=== PATIENT | male | born 1945 | race Caucasian/White ===

== ENCOUNTER 2020-12-27 23:12 | Inpatient (IN) | payer MEDICARE, BC ==
[~2020-12-27] VITALS: Ht 180.3 cm; Wt 79.4 kg
--- NOTE | 2020-12-27 23:12 | NUR ---
BIBRA AND [employer] FROM HOME. PER RA, BEING PLACED ON 5150 FOR DTO, PT APPEARS CONFUSED, TO BED 13, GOWNED, PLACED ON MONITOR, SITTER AT BS FOR SAFETY. VSS. NOT IN ANY DISTRESS, PENDING ER PROVIDER EVAL
[2020-12-28 00:04] LABS: BASOPHILS # (AUTO) 0.1 /CMM (0.0-0.2); BASOPHILS % (AUTO) 0.7 % (0.0-2.0); EOSINOPHILS % (AUTO) 0.8 % (0.0-6.0); HEMATOCRIT 41 % (39-51); HEMOGLOBIN 13.7 g/dL (13.5-17.5); LYMPHOCYTES # (AUTO) 1.4 /CMM (0.8-4.8); MEAN CORPUSCULAR HGB CONC 33 g/dl (31.0-36.0); MEAN CORPUSCULAR VOLUME 94 fL (80-96); MONOCYTES # (AUTO) 0.4 /CMM (0.1-1.30); MONOCYTES % (AUTO) 5.5 % (2.0-12.0); NEUTROPHILS # (AUTO) 6.1 /CMM (1.8-8.9); PLATELET COUNT (AUTO) 306 /CMM (150-450); RED BLOOD CELL COUNT(AUTO) 4.36 MIL/uL (4.5-6.0); WHITE BLOOD COUNT (AUTO) 8.1 K/uL (4.3-11.0)
[2020-12-28 00:13] LABS: CALCIUM, SERUM 9.2 mg/dL (8.5-10.1); CARBON DIOXIDE 28 mmol/L (21-32); CHLORIDE 102 mmol/L (98-107); CREATININE 0.9 mg/dL (0.6-1.3); GLUCOSE 103 mg/dL (74-106); POTASSIUM 3.8 mmol/L (3.5-5.1); SODIUM SERUM 136 mmol/L (136-145); UREA NITROGEN, BLOOD 15 mg/dL (7-18)
--- NOTE | 2020-12-28 00:20 | NUR ---
URINE COLLECTED AND SENT TO LAB
[2020-12-28 00:21] LABS: ALANINE AMINOTRANSFERASE 15 U/L (12-78); ALBUMIN 3.5 g/dL (3.4-5.0); ALCOHOL, BLOOD < 3 mg/dL (0-0); ALKALINE PHOSPHATASE 76 U/L (46-116); ASPARTATE AMINOTRANSFERASE 17 U/L (15-37); BILIRUBIN,DIRECT 0.1 mg/dL (0.0-0.2); BILIRUBIN,TOTAL 0.2 mg/dL (0.2-1.0); TOTAL PROTEIN, SERUM 7.2 g/dL (6.4-8.2)
[2020-12-28 00:23] LABS: ACETAMINOPHEN 0 ug/ml (10-30)
[2020-12-28 00:36] LABS: BILIRUBIN,URINE NEGATIVE (NEGATIVE); COLOR,URINE YELLOW (YELLOW); LEUKOCYTE ESTERASE ,URINE NEGATIVE (NEGATIVE); NITRITE, URINE NEGATIVE (NEGATIVE); PH,URINE 5.5 (5.0-8.0); PROTEIN,URINE NEGATIVE (NEGATIVE); UGLUCOSE NEGATIVE (NEGATIVE); UROBILINOGEN,URINE 0.2 EU/dL (0.2)
[2020-12-28] MEDS ORDERED: OLANZAPINE 10 MG VIAL IM ONE ×2 (00:44→01:00)
--- NOTE | 2020-12-28 00:58 | NUR ---
Call from lab. Rapid covid negative.
[2020-12-28 01:02] LABS: BACTERIA,URINE None seen /HPF (None Seen); HYALINE CASTS, URINE Few /LPF (None Seen); MUCUS,URINE Moderate /LPF (None Seen); RBC,URINE 0-2 /HPF (0-2); SQUAMOUS EPITHELIAL CELL,UR Few /HPF (None Seen); WBC,URINE 0-2 /HPF (0-3)
[2020-12-28] MEDS ORDERED: LORAZEPAM INJ 2 MG/ML VIAL ONE (04:50)
[2020-12-28] MEDS ORDERED: LORAZEPAM INJ 2 MG/ML VIAL IM ONE (05:00)
--- NOTE | 2020-12-28 07:23 | NUR ---
REPORT GIVEN TO DANY العراقي FOR HYUN
--- NOTE | 2020-12-28 07:42 | NUR ---
PT CONFUSED TRYING TO GT OUT OF BED DUSTIN WRIST REST FOR PROTECTION
--- NOTE | 2020-12-28 09:30 | NUR ---
CALLED NURSING FENCE MAKING MACHINE OPERATOR FOR [facility] BED.
--- NOTE | 2020-12-28 17:14 | NUR ---
GOING TO 214.A
--- NOTE | 2020-12-28 17:37 | NUR ---
REPORT GIVEN TO DODIE العراقي. TRANSPORTED TO FLOOR IN STABLE CONDITION.
[2020-12-28 17:45] VITALS: BP 154/83
[2020-12-28] MEDS ORDERED: BLOOD SUGAR DIAGNOSTIC 1 EACH STRIP IN ONE (18:00)
[2020-12-28] MEDS ORDERED: MAG HYDROX/AL HYDROX/SIMETH 30 ML UDC PO PRN (18:00)
[2020-12-28] MEDS ORDERED: MAGNESIUM HYDROXIDE 30 ML UDC PO PRN (18:00)
[2020-12-28] MEDS ORDERED: ACETAMINOPHEN 325 MG TABLET PO PRN (18:00)
[2020-12-28] MEDS ORDERED: ZOLPIDEM TARTRATE 5 MG TABLET PO PRN (18:00)
--- NOTE | 2020-12-28 18:00 | NUR ---
pt. arrived from er.made comfortable.vs taken.went through belongings.bed alarm set.contraband and belongings to locker.
[2020-12-28 18:09] VITALS: BP 154/83
--- NOTE | 2020-12-28 18:10 | NUR ---
will endorse pt. to next shift.dr. smith contacted regarding pt's admission.valuables will be sent to safe by next shift.
--- NOTE | 2020-12-28 18:32 | NUR ---
refused blood sugar.
--- NOTE | 2020-12-28 18:40 | NUR ---
refused admit blood sugar.
--- NOTE | 2020-12-28 18:54 | NUR ---
in dining rm.refused most of dinner except dessert.
[2020-12-28 19:56] VITALS: BP 110/62
[2020-12-28] MEDS: LORAZEPAM 0.5 MG TABLET PO PRN (22:07)
[2020-12-29 00:58] VITALS: BP 110/62
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
--- NOTE | 2020-12-29 06:44 | NUR ---
GPS RN CLOSING NOTES: PATIENT AWAKE, A/O X1, PATIENT IS IN DAY ROOM IN HIPOLITO CHAIR. PATIENT HAD ATIVAN 1MG AT 2207 AND AMBIEN 5MG/1TAB PO AT 2311 BUT SLEPT 1HR THIS SHIFT. PATIENT IS RESTLESS, CONFUSED, DISORGANIZED, DIFFICULT TO REDIRECT, REFUSED LAYING ON BED. NO S/S OF DISTRESS. RESPIRATION EVEN AND UNLABORED WITH EQUAL RISE AND FALL OF THE CHEST ON ROOM AIR. ALL PATIENT CARE NEEDS HAVE BEEN MET ANTICIPATED. WILL CONTINUE TO MONITOR FOR SAFETY, MOOD AND BEHAVIOR AND ENDORSE TO AM SHIFT
[2020-12-29 08:00] VITALS: BP 160/62
--- NOTE | 2020-12-29 09:25 | NUR ---
RN-CO: PATIENT WAS SEEN BY DR PETERSON.
[2020-12-29 10:00] LABS: ALBUMIN 3.8 g/dL (3.4-5.0); BILIRUBIN,TOTAL 0.7 mg/dL (0.2-1.0); CALCIUM, SERUM 9.6 mg/dL (8.5-10.1); CREATININE 0.9 mg/dL (0.6-1.3); POTASSIUM 3.8 mmol/L (3.5-5.1); TOTAL PROTEIN, SERUM 7.9 g/dL (6.4-8.2)
[2020-12-29 11:03] LABS: CHOLESTEROL 178 mg/dL (<200); HDL CHOLESTEROL 61 mg/dL (40-60); LDL 103 mg/dL (0-99); TRIGLYCERIDES 96 mg/dL (30-150)
[2020-12-29 16:00] VITALS: BP 165/85
[2020-12-29] MEDS: QUETIAPINE FUMARATE 25 MG TABLET PO SCH ×2 (16:23→22:18)
[2020-12-29] MEDS: LORAZEPAM 0.5 MG TABLET PO PRN (18:12)
[2020-12-29 20:50] VITALS: BP 141/103
--- NOTE | 2020-12-30 07:00 | NUR ---
GPS RN OPENING NOTES RECEIVED PATIENT IN BED, CALM AND RELAXED.PT ABLE TO FOLLOW SIMPLE COMMAND. EASY TO REDIRECT. NO S/S OF DISTRESS.BREATHING UNLABORED. BED IN LOWEST LOCKED POSITION, HOB ELEVATED, SIDE RAILS UPX2, CALL LIGHT AND TABLE WITHIN REACH. WILL CONTINUE TO MONITOR Q 15 MIN FOR SAFETY, MOOD & BEHAVIOR
[2020-12-30 08:00] VITALS: BP 162/90
[2020-12-30] MEDS: QUETIAPINE FUMARATE 25 MG TABLET PO SCH ×3 (09:29→21:34)
--- NOTE | 2020-12-30 11:23 | NUR ---
JEANNE UGARTE ([phone]), PT'S BROTHER CALLED AND WAS UPDATED ON PT'S STATUS. WILL CONTINUE TO MONITOR
--- NOTE | 2020-12-30 15:45 | NUR ---
Point of Contact: SW called the pt.'s , Bronwyn Basilio [phone] to gather collateral information. Bronwyn provided pt.'s HX.: The pt. was diagnosed with Alzheimer's about 5 years ago. Per Bronwyn, the [employer] are assisting her with filing for Conservatorship at this time. Patient's PCP is Dr. Yolanda Whyte [phone] [facility]. Pt.'s Neurologist, Dr. Manav Mckeon [phone] [facility] as well. Business Services Representative will be available as needed.
--- NOTE | 2020-12-30 15:45 | NUR ---
Initial Discharge Plan: Per the pt.'s Bronwyn, the pt. resides at home [[address] [address]] with her. Per Bronwyn, the pt. is unable to care for self and she is unable to care for the pt. and would like placement. Addendum: 12/30/20 at 1551 by JOSEPH CONTEH Brakes Inspector to continue to collaborate with IDT to ensure safe & proper discharge planning.
[2020-12-30 16:00] VITALS: BP 151/77
--- NOTE | 2020-12-30 18:55 | NUR ---
GPS RN CLOSING NOTES PT IN DINNING ROOM WATCHING AT THIS TIME. PT REMAINED STABLE THROUGH OUT SHIFT. ALL CARE, NEEDS, MEDICATIONS AND TREATMENT ADMINISTERED ANTICIPATED PER ORDER. PT KEPT CLEAN AND DRY. WILL ENDORSE TO MIRROR SPECIALIST NURSE TO CONTINUE TO MONITOR Q 15 MIN FOR SAFETY, MOOD & BEHAVIOR
[2020-12-30 21:29] VITALS: BP 169/105
[2020-12-30] MEDS: LORAZEPAM 0.5 MG TABLET PO PRN (21:34)
[2020-12-31 08:00] VITALS: BP 140/77
[2020-12-31] MEDS: QUETIAPINE FUMARATE 25 MG TABLET PO SCH ×2 (09:00→21:58)
--- NOTE | 2020-12-31 10:33 | NUR ---
[facility]: Per pt.'s 's request, YADY called and spoke to Dluce ([phone]) from [employer] [phone] to assist patient's , Bronwyn Basilio [phone] [facility] Per Dulce, she willc all the & follow up.
[2020-12-31 16:00] VITALS: BP 163/88
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
--- NOTE | 2020-12-31 16:18 | NUR ---
Family Contact: SW called the pt.'s , Bronwyn Basilio ([phone]), and left a voicemail stating that the SW would like to speak to her about the initial discharge plan for the pt and receiving authorization to speak with the [employer] [facility] staff.
[2020-12-31 21:12] VITALS: BP 124/62
[2020-12-31] MEDS: LORAZEPAM 0.5 MG TABLET PO PRN (21:58)
[2021-01-01 08:00] VITALS: BP 136/96
--- NOTE | 2021-01-01 10:58 | NUR ---
Probable Cause Hearing: Pts 5250 hold was upheld for grave disability.
[2021-01-01 16:00] VITALS: BP 156/90
[2021-01-01 20:56] VITALS: BP 166/92
[2021-01-01] MEDS: LORAZEPAM 0.5 MG TABLET PO PRN (21:52)
[2021-01-01] MEDS: QUETIAPINE FUMARATE 25 MG TABLET PO SCH (21:52)
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
--- NOTE | 2021-01-02 06:24 | NUR ---
metal wire technician notes pt resting at this time. no more bleeding noted from his mouth. call center operator MD aware . will endorse to am nurse .
[2021-01-02 08:00] VITALS: BP 144/97
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
[2021-01-02 16:00] VITALS: BP 137/92
[2021-01-02] MEDS: LORAZEPAM 0.5 MG TABLET PO PRN (18:21)
[2021-01-02 19:50] VITALS: BP 167/84
[2021-01-02] MEDS: QUETIAPINE FUMARATE 25 MG TABLET PO SCH (21:01)
[2021-01-02 21:30] VITALS: BP 126/99
[2021-01-03] MEDS: LORAZEPAM 0.5 MG TABLET PO PRN ×2 (02:34→15:21)
--- NOTE | 2021-01-03 02:34 | NUR ---
GPS-RN NOTES: ANXIETY PATIENT IS ANXIOUS, RESTLESS AND AGITATED. ADMINISTERED ATIVAN 1MG PO ORDERED. WILL CONTINUE TO MONITOR FOR PATIENT'S SAFETY.
[2021-01-03 08:00] VITALS: BP 110/63
--- NOTE | 2021-01-03 10:30 | NUR ---
APS Installer Apprentice Contact: APS Installer Apprentice Lissette ([phone]) contacted the SW and stated that she wanted to be informed of the pts discharge plan. SW informed her that the pt will not be discharged until after the weekend and stated that the plan is to send the pt to a senior living facility. APS SW stated that she would call and follow up.
--- NOTE | 2021-01-03 10:54 | NUR ---
The told the psychiatrist that pt. had lung cancer 3 years ago and psychiatrist wanted staff to notify the medical doctor. Dr. Cloud made aware and said ok.
[2021-01-03 16:00] VITALS: BP 149/78
--- NOTE | 2021-01-03 17:48 | NUR ---
PER RN, PT UNABLE TO DO TWO VIEW CHEST XRAY. RN WILL FOLLOW UP WITH MD FOR XRAY ORDER.
--- NOTE | 2021-01-03 19:30 | NUR ---
RN NOTES: REFUSED SKIN ASSESSMENT PT. NOTED WITH SELF INFLICTED SKIN DISCOLORATIONS ,PT. REFUSED SKIN ASSEEMENT ENCOURAGED X3, PT. STRONGLY REFUSED ,RISKS AND BENFITS EXPLINED AND PT. BEHAVIOR VERY UNCOOPERATIVE, ANXIOUS, UNPREDICTABLE, CLIMBING OUT THE BED AND GERICHAIR ,NOT STAYING IN THE BED , BANGING UPPER LOWER EXTEIMITIES WITH SIDE RAILS AND HIPOLITO CHAIR ,WILL CONTINUE TO MONITOR.
[2021-01-03 20:21] VITALS: BP 151/86
[2021-01-03] MEDS: QUETIAPINE FUMARATE 25 MG TABLET PO SCH (21:09)
[2021-01-03] MEDS: diphenhydrAMINE HCL 50 MG CAPSULE PO SCH (21:09)
[2021-01-03 22:00] VITALS: BP 138/82
[2021-01-04] MEDS ORDERED: Z GUARD REMEDY 2 OZ OINT TP PRN (02:30)
[2021-01-04] MEDS: LORAZEPAM 0.5 MG TABLET PO PRN ×2 (06:14→15:37)
--- NOTE | 2021-01-04 06:17 | NUR ---
RN NOTES: ANXIETY PT. BEHAVIOR VERY UNCOOPERATIVE, VERY ANXIOUS, UNPREDICTABLE, CLIMBING OUT THE BED AND GERICHAIR ,NOT STAYING IN THE BED , BANGING UPPER LOWER EXTEIMITIES WITH SIDE RAILS AND HIPOLITO CHAIR ,[id number] PO PRN GIVEN,WILL CONTINUE TO MONITOR.
[2021-01-04 08:00] VITALS: BP 138/71
--- NOTE | 2021-01-04 15:37 | NUR ---
given ativan 1 mg. for agitation.
[2021-01-04 16:00] VITALS: BP 151/69
--- NOTE | 2021-01-04 19:30 | NUR ---
GPS RN OPENING NOTES REPORT RECIEVED FROM KEYON العراقي. RECEIVED PATIENT IN [facility] SITTIGN IN HALLWAY, CALM AND RELAXED ORIENTED X1 DISORGANIZED THOUGHT PROCESS. PT COOPERATIVE. PT IN NO APPARENT DISTRESS OR PAIN AT THIS TIME. BREATHING EVEN AND UNLABORED. WILL CONTINUE TO MONITOR Q 15 MIN FOR SAFETY, MOOD & BEHAVIOR
[2021-01-04 20:29] VITALS: BP 152/86
[2021-01-04] MEDS: QUETIAPINE FUMARATE 25 MG TABLET PO SCH (22:19)
[2021-01-04] MEDS: diphenhydrAMINE HCL 50 MG CAPSULE PO SCH (22:19)
[2021-01-05 08:00] VITALS: BP 112/65
[2021-01-05] MEDS: QUETIAPINE FUMARATE 25 MG TABLET PO SCH (08:26)
[2021-01-05] MEDS: LORAZEPAM 0.5 MG TABLET PO PRN ×2 (08:26→16:45)
--- NOTE | 2021-01-05 10:00 | NUR ---
RN NOTE INFORMED DR LOLLY MARQUEZ REGARDING PT IF HE WANTS TO CONSIDER CT SCAN FOR A MORE EXTENSIVE ASSESSMENT OF THE NODULES, HE SAID HE WILL CHECK ON IT.
[2021-01-05 16:00] VITALS: BP 157/80
[2021-01-05 20:00] VITALS: BP 156/88
[2021-01-05] MEDS: diphenhydrAMINE HCL 50 MG CAPSULE PO SCH (21:53)
[2021-01-05] MEDS: QUETIAPINE FUMARATE 100 MG TABLET PO SCH (21:53)
[2021-01-05] MEDS ORDERED: QUETIAPINE FUMARATE 25 MG TABLET PO SCH (22:00)
[2021-01-06 08:00] VITALS: BP 141/74
[2021-01-06] MEDS: QUETIAPINE FUMARATE 25 MG TABLET PO SCH (08:09)
--- NOTE | 2021-01-06 10:16 | NUR ---
SNF Referral: SW faxed a referral to [facility] with attn to David to the fax number: [phone].
[2021-01-06 16:00] VITALS: BP 145/90
[2021-01-06 20:00] VITALS: BP 155/83
[2021-01-06] MEDS: diphenhydrAMINE HCL 50 MG CAPSULE PO SCH (21:04)
[2021-01-06] MEDS: QUETIAPINE FUMARATE 100 MG TABLET PO SCH (21:05)
[2021-01-06] MEDS: LORAZEPAM 0.5 MG TABLET PO PRN (23:02)
--- NOTE | 2021-01-06 23:03 | NUR ---
GPS-RN NOTES: ANXIETY PATIENT IS ANXIOUS AND RESTLESS. ADMINISTERED ATIVAN 1MG PO ORDERED. WILL CONTINUE TO MONITOR FOR PATIENT'S SAFETY.
[2021-01-07 08:00] VITALS: BP 162/69
[2021-01-07] MEDS: QUETIAPINE FUMARATE 25 MG TABLET PO SCH ×2 (08:03→17:12)
--- NOTE | 2021-01-07 09:00 | NUR ---
RN NOTE- PT PARANOID, CONFUSED AND WITHDRAWN. PT POOR EYE CONTACT MINIMAL INTERACTION, MED COMPLIANT W CRUSHED RX. PO INTAKE FAIR.
--- NOTE | 2021-01-07 11:03 | NUR ---
APS Follow-up: YADY received call from APS workerJuli [phone] requesting additional information and current D/C plan. SW addressed Juli's questions and informed he that per Grazyna CONTEH' notes, the current D/C plan is for patient D/C to a SNF. Juli is agreeable. YADY will be available as needed.
--- NOTE | 2021-01-07 13:57 | NUR ---
SNF Contact: Evelyn ([phone]) from [facility] contacted the SW and stated that the pt was accepted to their facility.
--- NOTE | 2021-01-07 15:30 | NUR ---
PT. ENDORSED TO ME AT THIS TIME BY CATIA PURCELL.
[2021-01-07 16:00] VITALS: BP 150/75
[2021-01-07 20:00] VITALS: BP 138/81
[2021-01-07] MEDS: QUETIAPINE FUMARATE 100 MG TABLET PO SCH (22:21)
[2021-01-07] MEDS: diphenhydrAMINE HCL 50 MG CAPSULE PO SCH (22:21)
--- NOTE | 2021-01-08 06:36 | NUR ---
GPS RN CLOSING NOTES: PATIENT IN HALLWAY SITTING IN HIPOLITO CHAIR AWAKE AND ALERT . SLEPT 0HR THIS SHIFT. RESTLESS, CONFUSED, DISORGANIZED. NO S/S OF DISTRESS. RESPIRATION EVEN AND UNLABORED WITH EQUAL RISE AND FALL OF THE CHEST ON ROOM AIR. OFFERED FLUID AND SNACKS TOLERATED. ALL PATIENT CARE NEEDS MET ANTICIPATED. WILL CONTINUE TO MONITOR FOR SAFETY, MOOD AND BEHAVIOR AND ENDORSE TO AM SHIFT.
[2021-01-08 08:00] VITALS: BP 153/100
[2021-01-08] MEDS: QUETIAPINE FUMARATE 25 MG TABLET PO SCH ×2 (09:11→16:51)
--- NOTE | 2021-01-08 09:44 | NUR ---
[facility] Contact: YADY called Rebecca ([phone]) and Cathy ([phone]), social workers from [employer], and left a voicemail stating that there is an update with the pts discharge plan.
[2021-01-08] MEDS: AMLODIPINE BESYLATE 5 MG TABLET PO SCH (10:05)
--- NOTE | 2021-01-08 10:15 | NUR ---
RN NOTE: HYPERTENSION DR. RAMEY NOTIFIED OF ELEVATED BP. STARTED ON AMLODIPINE 5MG DAILY.
[2021-01-08] MEDS: ENSURE ENLIVE 237 ML LIQUID (VANILLA) PO SCH ×2 (13:09→16:50)
--- NOTE | 2021-01-08 14:30 | NUR ---
[employer] [facility] Contact: Rebecca ([phone]) and Cathy ([phone]), social workers from [employer], contacted the SW and inquired about the pts discharge plan. SW stated that the pt was accepted at [facility] and is set to discharge there on Wednesday. SW explained that there would be a continuity of care between the pt and the MD and informed them that it is a facility that is deemed to be an appropriate fit for the pt. Rebecca stated that she wanted to look up the reviews and that she will call the SW back in a few minutes.
--- NOTE | 2021-01-08 15:26 | NUR ---
[facility] Contact: Cathy ([phone]), social sciences department chair from [employer], contacted the SW and stated that the pt can be discharged to [facility]. SW stated that she would inform the right now.
--- NOTE | 2021-01-08 15:28 | NUR ---
Family Contact: SW called the pt.'s , Bronwyn Basilio ([phone]), and informed her of the placement for the pt and informed her that he will be discharged there on Wednesday.
[2021-01-08 16:00] VITALS: BP 158/91
[2021-01-08] MEDS: LORAZEPAM 0.5 MG TABLET PO PRN (19:40)
--- NOTE | 2021-01-08 19:40 | NUR ---
GPS-RN NOTES: ANXIETY PATIENT IS ANXIOUS AND RESTLESS. ADMINISTERED ATIVAN 1MG PO ORDERED. WILL CONTINUE TO MONITOR FOR PATIENT'S SAFETY.
[2021-01-08 19:41] VITALS: BP 162/73
[2021-01-08] MEDS: QUETIAPINE FUMARATE 100 MG TABLET PO SCH (21:15)
[2021-01-08] MEDS: diphenhydrAMINE HCL 50 MG CAPSULE PO SCH (21:15)
[2021-01-09] MEDS: ZOLPIDEM TARTRATE 10 MG TABLET PO PRN ×2 (00:10→23:23)
[2021-01-09 08:00] VITALS: BP 109/69
[2021-01-09] MEDS: AMLODIPINE BESYLATE 5 MG TABLET PO SCH ×2 (09:00→11:32)
[2021-01-09] MEDS: QUETIAPINE FUMARATE 25 MG TABLET PO SCH ×2 (09:44→16:23)
[2021-01-09] MEDS: ENSURE ENLIVE 237 ML LIQUID (VANILLA) PO SCH ×3 (09:44→16:16)
--- NOTE | 2021-01-09 11:17 | NUR ---
Family Contact: Pts sister, Almita ([phone]), called the SW and stated that the SNF that was secured for the pt is too far away and stated that she wanted the SW to refer the pt to [facility]. SW stated that she can assist and refer the pt but also informed her that the pt is going to be discharged tomorrow.
--- NOTE | 2021-01-09 11:20 | NUR ---
Family Contact: SW called the pt.'s , Bronwyn Basilio ([phone]), and inquired about if she wanted a closer SNF placement as well and she stated that she does. Pts stated that she wanted the SW to try and understands that the pts discharge date is tomorrow. SW stated that if another placement cannot be secured then the facility can assist in moving the pt closer. Pts stated that she understands.
--- NOTE | 2021-01-09 11:52 | NUR ---
SNF Contact: YADY faxed a SNF referral to [facility] with attn to admissions to the fax number: [phone].
--- NOTE | 2021-01-09 14:39 | NUR ---
SNF Contact: Pedrito from [facility] contacted the SW and stated that the pt was not accepted to their facility.
--- NOTE | 2021-01-09 14:42 | NUR ---
Family Contact: Pts sisterAlmita ([phone]), Addendum: 01/09/21 at 1443 by YADY BOWERS YADY called the pts sister, Almita ([phone]), and informed her that [facility] was not accepting the pt and the pts sister asked the SW to try [facility].
--- NOTE | 2021-01-09 14:43 | NUR ---
SNF Referral: YADY faxed a referral to [facility] SNF with attn to Bronwyn to the fax number: [phone].
[2021-01-09 16:00] VITALS: BP 135/82
[2021-01-09 19:49] VITALS: BP 137/64
[2021-01-09] MEDS: diphenhydrAMINE HCL 50 MG CAPSULE PO SCH (21:34)
[2021-01-09] MEDS: QUETIAPINE FUMARATE 100 MG TABLET PO SCH (21:34)
--- NOTE | 2021-01-09 23:24 | NUR ---
RN NOTES: INSOMNIA : PT. C/O INSOMNIA AMBIEN 10 MG PO PRN GIVEN, WILL CONTINUE TO MONITOR.
[2021-01-10 08:00] VITALS: BP 105/63
[2021-01-10] MEDS: ENSURE ENLIVE 237 ML LIQUID (VANILLA) PO SCH ×2 (08:19→12:55)
[2021-01-10 08:20] VITALS: BP 105/63
[2021-01-10] MEDS: AMLODIPINE BESYLATE 5 MG TABLET PO SCH (08:20)
[2021-01-10] MEDS: QUETIAPINE FUMARATE 25 MG TABLET PO SCH (08:20)
--- NOTE | 2021-01-10 09:00 | NUR ---
RN NOTE-PT CALM CONFUSED QUIET RESTING IN BED. PO INTAKE GOOD W FULL ASSIST, MED COMPLIANT CRUSHED RX, NO BEHAVIORAL ISSUES, FOR DC TODAY
--- NOTE | 2021-01-10 09:06 | NUR ---
Dr. Torres gave an order to D/C bassem and D/C to [facility] and to follow up with psych and medical doctors. Psychiatrist ordered to continue same meds including prn. Addendum: 01/10/21 at 1004 by TOM RAMIRES RN Pt. is going to [facility] not at [facility]
--- NOTE | 2021-01-10 09:10 | NUR ---
Court Appointed Telecommunication Lines Repairer Contact: Nitesh Pretty ([phone]), court appointed canine deputy, contacted the SW and stated that he is mandated to speak to the pt regarding his conservatorship hearing that is taking place on Wednesday. Telecommunication Lines Repairer provided the SW with a zoom link and the pt was present for the meeting.
--- NOTE | 2021-01-10 09:33 | NUR ---
SNF Contact: Bronwyn ([phone]) from [facility] contacted the SW and stated that the pt was accepted to their facility.
--- NOTE | 2021-01-10 09:34 | NUR ---
Family Contact: SW called the pts sister, Almita ([phone]), and informed her that the pt was accepted to [facility]. Pts sister expressed gratitude with this placement.
--- NOTE | 2021-01-10 09:35 | NUR ---
Family Contact: SW called the pt.'s , Bronwyn Basilio ([phone]), and informed her that the pt is accepted at [facility] and she accepted the placement.
--- NOTE | 2021-01-10 12:20 | NUR ---
Discharge Note: Pt will be discharged to [facility] ([facility] [place] [address] [place] [address]; ([phone]). Pt will be transported via [facility] at 1300. Pts , Bronwyn ([phone]), was made aware. Upon discharge, the pt appears to be in a dysphoric mood and presents with a distressed affect. Pt presents as oriented x3 (time, place, and self). Pt denies both suicidal and homicidal ideation as well as auditory and visual hallucinations. Pt will continue to be under the care of his psychiatrist, Dr. Ashley, [place] [address] [facility] [address] [address]; and dietitian consultant, dietitian consultant, Dr. Smith, [place] [address] [place] [address]; . The choice of vendor form and multidisciplinary exit care form were done, printed, signed, and given to the patient.
--- NOTE | 2021-01-10 13:52 | NUR ---
CUSTOMER ACCOUNT COORDINATOR NOTE- PT DC AT THIS TIME VIA [facility] TO [facility]. PT IS ALERT CONFUSED ORIENTED TO SELF. SKIN W ONE SMALL SKIN TEAR TO LLE. PHOTOS TAKEN FOR CHART. PT MED COMPLIANT DIRECTABLE IN NO DISTRESS. VS STABLE BP-105/63, HR- 68, RR-18, T- 98.0 SATURATION 99% RA. ID WRISTBAND REMOVED, VALUABLES RETURNED, REPORT CALLED TO [facility]. REFUSES VACCINES. ASSISTED AND ESCORTED OFF UNIT
== END 2021-01-10 13:52 | DRG 885 ==
LOC: ER 23:15 → GPS 12-28 17:22
PROVIDERS: ADMIT Psychiatry & Neurology Psychiatry; ATTEND Nurse Practitioner Acute Care
DX: F29 Unspecified psychosis not due to a substance or known physiological condition (principal); F02.81 Dementia in other diseases classified elsewhere, unspecified severity, with behavioral disturbance; F41.9 Anxiety disorder, unspecified; E78.5 Hyperlipidemia, unspecified; I10 Essential (primary) hypertension; G30.9 Alzheimer's disease, unspecified; R53.1 Weakness; R27.8 Other lack of coordination; Z91.81 History of falling; Z73.6 Limitation of activities due to disability; F32.9 Major depressive disorder, single episode, unspecified; R73.03 Prediabetes; Z79.899 Other long term (current) drug therapy
CPT/HCPCS: 36415; 71045-TC; 80048-TC; 80053-TC; 80061-TC; 80076-TC; 81001; 85025-TC; 87081-TC; 92526; 92611-TC; C9803; G0480; J2060; J3490; Q0163

== ENCOUNTER 2021-02-22 02:03 | Inpatient (IN) | payer MEDICARE, BC ==
[~2021-02-22] VITALS: Ht 167.6 cm; Wt 60.3 kg
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
[2021-02-22] MEDS ORDERED: DIPH50CA37 PO (02:16)
[2021-02-22] MEDS ORDERED: LIDOCAINE 2% JEL UROJET 10 ML MM ONE (02:16)
[2021-02-22] MEDS ORDERED: AMLO5TAB4 PO (02:16)
[2021-02-22] MEDS ORDERED: QUET100T PO (02:16)
[2021-02-22] MEDS ORDERED: QUET50TA PO (02:16)
[2021-02-22] MEDS ORDERED: TDAP [DIPH/PERTUSSIS/TET] 0.5 ML VIAL IM ONE (02:23)
--- NOTE | 2021-02-22 02:35 | NUR ---
URINE COLLECTED AND SENT TO LAB
--- NOTE | 2021-02-22 02:35 | NUR ---
COVID SWAB SENT TO LAB
[2021-02-22 02:39] LABS: BASOPHILS % (AUTO) 0.2 % (0.0-2.0); EOSINOPHILS % (AUTO) 1.8 % (0.0-6.0); HEMATOCRIT 38 % (39-51); HEMOGLOBIN 12.5 g/dL (13.5-17.5); LYMPHOCYTES # (AUTO) 2.1 /CMM (0.8-4.8); LYMPHOCYTES % (AUTO) 31.7 % (20.0-44.0); MEAN CORPUSCULAR HGB CONC 33 g/dl (31.0-36.0); MEAN CORPUSCULAR VOLUME 96 fL (80-96); MONOCYTES # (AUTO) 0.5 /CMM (0.1-1.30); MONOCYTES % (AUTO) 6.8 % (2.0-12.0); NEUTROPHILS % (AUTO) 59.5 % (43.0-81.0); PLATELET COUNT (AUTO) 288 /CMM (150-450); RED BLOOD CELL COUNT(AUTO) 3.95 MIL/uL (4.5-6.0); WHITE BLOOD COUNT (AUTO) 6.6 K/uL (4.3-11.0)
[2021-02-22 02:53] LABS: CALCIUM, SERUM 9.1 mg/dL (8.5-10.1); CARBON DIOXIDE 27 mmol/L (21-32); CHLORIDE 106 mmol/L (98-107); CREATININE 1.1 mg/dL (0.6-1.3); GLUCOSE 89 mg/dL (74-106); SODIUM SERUM 137 mmol/L (136-145); UREA NITROGEN, BLOOD 14 mg/dL (7-18)
[2021-02-22 02:57] LABS: BILIRUBIN,URINE NEGATIVE (NEGATIVE); COLOR,URINE YELLOW (YELLOW); LEUKOCYTE ESTERASE ,URINE NEGATIVE (NEGATIVE); NITRITE, URINE NEGATIVE (NEGATIVE); PH,URINE 6.5 (5.0-8.0); PROTEIN,URINE NEGATIVE (NEGATIVE); UGLUCOSE NEGATIVE (NEGATIVE); UROBILINOGEN,URINE 0.2 EU/dL (0.2)
[2021-02-22 02:59] LABS: ACETAMINOPHEN < 2 ug/ml (10-30); ALANINE AMINOTRANSFERASE 19 U/L (12-78); ALBUMIN 3.4 g/dL (3.4-5.0); ALCOHOL, BLOOD < 3 mg/dL (0-0); ALKALINE PHOSPHATASE 78 U/L (46-116); ASPARTATE AMINOTRANSFERASE 12 U/L (15-37); BILIRUBIN,DIRECT 0.1 mg/dL (0.0-0.2); BILIRUBIN,TOTAL 0.2 mg/dL (0.2-1.0); TOTAL PROTEIN, SERUM 6.7 g/dL (6.4-8.2)
[2021-02-22 03:01] LABS: BACTERIA,URINE None seen /HPF (None Seen); RBC,URINE 0-2 /HPF (0-2); SQUAMOUS EPITHELIAL CELL,UR Few /HPF (None Seen); WBC,URINE 0-2 /HPF (0-3)
--- NOTE | 2021-02-22 04:06 | NUR ---
CALL FROM LAB. RAPID COVID NEGATIVE.
--- NOTE | 2021-02-22 05:40 | NUR ---
SANDI- CRISIS TEAM AT BEDSIDE FOR EVAL.
--- NOTE | 2021-02-22 06:54 | NUR ---
217 REPORT AFTER SHIFT CHANGE
--- NOTE | 2021-02-22 07:30 | NUR ---
REPORT GIVEN TO DULCE MARIA ECHEVARRIA FOR HYUN
[2021-02-22 08:30] VITALS: BP 127/72
[2021-02-22] MEDS ORDERED: MAG HYDROX/AL HYDROX/SIMETH 30 ML UDC PO PRN (08:30)
[2021-02-22] MEDS ORDERED: BLOOD SUGAR DIAGNOSTIC 1 EACH STRIP IN ONE (08:30)
[2021-02-22] MEDS ORDERED: MAGNESIUM HYDROXIDE 30 ML UDC PO PRN (08:30)
[2021-02-22] MEDS: AMLODIPINE BESYLATE 5 MG TABLET PO SCH (09:38)
[2021-02-22] MEDS: QUETIAPINE FUMARATE 25 MG TABLET PO SCH ×2 (11:24→16:20)
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
[2021-02-22 16:00] VITALS: BP 119/96
[2021-02-22 20:51] VITALS: BP 119/51
[2021-02-22 20:52] VITALS: BP 119/51
[2021-02-22] MEDS: QUETIAPINE FUMARATE 100 MG TABLET PO SCH (21:06)
[2021-02-22] MEDS: diphenhydrAMINE HCL 50 MG CAPSULE PO SCH (22:02)
[2021-02-22] MEDS: LORAZEPAM 0.5 MG TABLET PO PRN (23:03)
--- NOTE | 2021-02-22 23:05 | NUR ---
RN NOTE: ANXIETY PATIENT IS VERY ANXIOUS, RESTLESS, AGGRESSIVE, AGITATED, TRYING TO STRIKE AT STAFF, BANGING ON HIPOLITO CHAIR TRAY, LOUD, YELLING, PRN ATIVAN 0.5 MG 1 TAB PO ADMINISTERED. WILL CONTINUE TO MONITOR.
[2021-02-23] MEDS: TEMAZEPAM 7.5 MG CAPSULE PO PRN ×3 (01:40→23:44)
--- NOTE | 2021-02-23 01:40 | NUR ---
RN NOTE: INSOMNIA PATIENT IS AWAKE, UNABLE TO SLEEP, EASILY AGITATED & RESTLESS. PRN RESTORIL 7.5 MG 1 CAP PO ADMINISTERED. WILL CONTINUE TO MONITOR.
[2021-02-23 08:00] VITALS: BP 136/70
[2021-02-23] MEDS: AMLODIPINE BESYLATE 5 MG TABLET PO SCH (08:11)
[2021-02-23] MEDS: QUETIAPINE FUMARATE 25 MG TABLET PO SCH ×2 (08:11→16:22)
[2021-02-23 16:00] VITALS: BP 131/74
[2021-02-23] MEDS: LORAZEPAM 0.5 MG TABLET PO PRN ×2 (16:22→23:05)
--- NOTE | 2021-02-23 16:22 | NUR ---
RN-CO: ATIVAN 0.5MG PO GIVEN FOR RESTLESSNESS.
[2021-02-23 18:28] LABS: ALBUMIN 3.4 g/dL (3.4-5.0); BILIRUBIN,TOTAL 0.3 mg/dL (0.2-1.0); CALCIUM, SERUM 8.9 mg/dL (8.5-10.1); CHOLESTEROL 162 mg/dL (<200); CREATININE 0.9 mg/dL (0.6-1.3); HDL CHOLESTEROL 42 mg/dL (40-60); LDL 100 mg/dL (0-99); POTASSIUM 4.2 mmol/L (3.5-5.1); TOTAL PROTEIN, SERUM 7.2 g/dL (6.4-8.2); TRIGLYCERIDES 191 mg/dL (30-150)
[2021-02-23] MEDS: QUETIAPINE FUMARATE 100 MG TABLET PO SCH (21:02)
[2021-02-23] MEDS: diphenhydrAMINE HCL 50 MG CAPSULE PO SCH (21:02)
[2021-02-23 21:42] VITALS: BP 133/80
--- NOTE | 2021-02-23 23:05 | NUR ---
ROSA ELENA RN NOTES PATIENT GIVEN ATIVAN O.5 MG BECAUSE HE WAS VERY AGITATED.
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
--- NOTE | 2021-02-24 06:36 | NUR ---
GPS RN CLOSING NOTES 217 PATIENT IN ROOM SLEEPING, BUT EASY TO AROUSE. NO S/S OF DISTRESS. NO C/O PAIN. ALL SCHED MEDS GIVEN. SAFETY KEPT IN PLACE: BED IN LOWEST, LOCKED POSITION; BED ALARM IN PLACE. ALL NEEDS ATTENDED. WILL ENDORSE CARE TO MORNING SHIFT NURSE.
[2021-02-24 08:00] VITALS: BP 133/70
[2021-02-24] MEDS: AMLODIPINE BESYLATE 5 MG TABLET PO SCH (09:00)
[2021-02-24] MEDS: QUETIAPINE FUMARATE 25 MG TABLET PO SCH ×2 (09:38→17:16)
[2021-02-24] MEDS: LORAZEPAM 0.5 MG TABLET PO PRN ×2 (09:39→20:17)
--- NOTE | 2021-02-24 09:39 | NUR ---
west godinez administered Ativan 0.5 mg po prn for anxiety, paranoia. bp 99/57, p-61, will monitoring.
--- NOTE | 2021-02-24 13:44 | NUR ---
SNF Contact: YADY contacted Bronwyn ([phone]) from [facility] who stated that the pt can return once stable.
--- NOTE | 2021-02-24 13:45 | NUR ---
Family Contact: SW contacted the pts , Bronwyn ([phone]), who stated that she does not want the pt to go back to [facility] and instead wants the pt to go to [facility] due to their facility having more resources. SW stated that she will assist with the discharge.
--- NOTE | 2021-02-24 15:46 | NUR ---
Initial Discharge Plan: Pt currently resides [facility] located at [address] [place] [id number]; ([phone]). Per facility, the pt will be allowed to return once stable. Per pts , Bronwyn ([phone]), she would like to place the pt elsewhere. SW will work with the pt and the MD regarding appropriate discharge planning. SW will form a safe and proper plan.
[2021-02-24 16:00] VITALS: BP 125/78
--- NOTE | 2021-02-24 20:19 | NUR ---
GPS RN NOTES: PATIENT IS ANXIOUS, RESTLESS, PACING, DISORGANIZED. ATIVAN 0.5MG 1TAB GIVEN PO PRN ORDERED AT 2017. WILL CONTINUE TO MONITOR.
[2021-02-24] MEDS: QUETIAPINE FUMARATE 100 MG TABLET PO SCH (21:21)
[2021-02-24] MEDS: diphenhydrAMINE HCL 50 MG CAPSULE PO SCH (21:21)
[2021-02-24] MEDS: ACETAMINOPHEN 325 MG TABLET PO PRN (21:53)
[2021-02-24] MEDS: TEMAZEPAM 7.5 MG CAPSULE PO PRN (22:00)
[2021-02-24] MEDS ORDERED: OLANZAPINE 10 MG VIAL IM ONE (22:30)
--- NOTE | 2021-02-24 22:50 | NUR ---
GPS RN NOTES: PATIENT WAS AGITATED, RESTLESS, ANXIOUS, WANDERING INTO OTHER PATIENTS ROOMS, COMBATIVE, REFUSING REDIRECTION. SECURITY CALLED AND ZYPREXA 5MG/IM ADMINISTERED PER DR FIGUEROA'S ORDER AT 2240. PATIENT STILL RESTLESS AND CONFUSED. WILL CONTINUE TO MONITOR.
[2021-02-25 01:50] VITALS: BP 114/86
[2021-02-25 08:00] VITALS: BP 142/89
[2021-02-25] MEDS: QUETIAPINE FUMARATE 25 MG TABLET PO SCH ×2 (08:12→16:51)
[2021-02-25] MEDS: AMLODIPINE BESYLATE 5 MG TABLET PO SCH (08:12)
[2021-02-25 16:00] VITALS: BP 144/80
[2021-02-25] MEDS ORDERED: OLANZAPINE 10 MG VIAL IM ONE (19:30)
--- NOTE | 2021-02-25 19:53 | NUR ---
GPS RN NOTES: ZYPREXA 10MG IM GIVEN AT 8 D/T INCREASED AGITATION, CONFUSION, HITTING STAFF SEVERAL TIMES ON THE CHEST. WILL CONTINUE TO MONITOR.
[2021-02-25 20:24] VITALS: BP 150/88
[2021-02-25] MEDS ORDERED: QUETIAPINE FUMARATE 100 MG TABLET PO SCH (21:00)
[2021-02-25] MEDS: diphenhydrAMINE HCL 50 MG CAPSULE PO SCH (21:25)
--- NOTE | 2021-02-26 06:35 | NUR ---
GPS RN CLOSING NOTES: PATIENT IS SITTING ON HIPOLITO CHAIR, AWAKE, A/O X1. NO S/S OF DISTRESS. RESPIRATION EVEN AND UNLABORED WITH EQUAL RISE AND FALL OF THE CHEST ON ROOM AIR. ALL PATIENT CARE NEEDS HAVE BEEN MET ANTICIPATED. WILL CONTINUE TO MONITOR FOR SAFETY, MOOD AND BEHAVIOR AND ENDORSE TO AM SHIFT
[2021-02-26 08:00] VITALS: BP 149/90
[2021-02-26] MEDS: AMLODIPINE BESYLATE 5 MG TABLET PO SCH (08:33)
[2021-02-26] MEDS: QUETIAPINE FUMARATE 25 MG TABLET PO SCH ×4 (08:33→16:58)
[2021-02-26] MEDS: LORAZEPAM 0.5 MG TABLET PO PRN (08:34)
--- NOTE | 2021-02-26 08:34 | NUR ---
RN NOTE: ANXIETY PT VISIBLY AGITATED AND ANXIOUS. SHAKING ARMS AND HANDS IN THE AIR. PACING HALLWAY AND ATTEMPTING TO GO INTO OTHER PATIENT'S ROOM. MEDICATED WITH ATIVAN 0.5 MG PO PRN. WILL CONT TO MONITOR PT FOR SAFETY, BEHAVIOR AND EFFECTIVENESS OF PRN MEDICATION
--- NOTE | 2021-02-26 13:21 | NUR ---
RN NOTE: 1300 DOSE OF SEROQUEL HELD DUE TO 1ST DOSE OF ADJUSTED RX GIVEN PRIOR TO 1300
[2021-02-26] MEDS ORDERED: LORAZEPAM 0.5 MG TABLET PO PRN (14:30)
[2021-02-26 16:00] VITALS: BP 92/53
[2021-02-26] MEDS: ENSURE ENLIVE 237 ML LIQUID (VANILLA) PO SCH (16:58)
[2021-02-26 20:00] VITALS: BP 149/87
[2021-02-26] MEDS: diphenhydrAMINE HCL 50 MG CAPSULE PO SCH (20:58)
[2021-02-26] MEDS: QUETIAPINE FUMARATE 100 MG TABLET PO SCH (20:58)
[2021-02-27 08:00] VITALS: BP 140/76
[2021-02-27] MEDS: QUETIAPINE FUMARATE 25 MG TABLET PO SCH (09:43)
[2021-02-27] MEDS: AMLODIPINE BESYLATE 5 MG TABLET PO SCH (09:43)
[2021-02-27] MEDS: ENSURE ENLIVE 237 ML LIQUID (VANILLA) PO SCH ×3 (09:44→17:33)
--- NOTE | 2021-02-27 10:27 | NUR ---
Probable Cause Hearing: Pts 5250 hold was upheld for grave disability.
[2021-02-27] MEDS: risperiDONE 1 MG TABLET PO SCH ×2 (12:06→16:03)
--- NOTE | 2021-02-27 12:06 | NUR ---
Per psychiatrist not give the dose for 1:00 pm and to start the first dose at 1700
[2021-02-27 16:00] VITALS: BP 127/73
[2021-02-27 20:13] VITALS: BP 125/90
[2021-02-27 20:30] VITALS: BP 125/90
[2021-02-27] MEDS: QUETIAPINE FUMARATE 100 MG TABLET PO SCH (21:02)
[2021-02-27] MEDS: diphenhydrAMINE HCL 50 MG CAPSULE PO SCH (22:05)
[2021-02-27] MEDS: TEMAZEPAM 7.5 MG CAPSULE PO PRN (23:05)
--- NOTE | 2021-02-27 23:05 | NUR ---
RN NOTE: INSOMNIA PATIENT IS AWAKE, UNABLE TO SLEEP, EASILY AGITATED & RESTLESS, KEEPS BANGING ON HIPOLITO CHAIR TRAY. PRN RESTORIL 7.5 MG 1 CAP PO ADMINISTERED. WILL CONTINUE TO MONITOR.
[2021-02-28] MEDS: LORAZEPAM 1 MG TABLET PO PRN (04:44)
--- NOTE | 2021-02-28 04:46 | NUR ---
RN NOTE: ANXIETY PATIENT IS ANXIOUS, RESTLESS, AGITATED, LOUD, YELLING, BANGING ON HIPOLITO CHAIR TRAY. PRN ATIVAN 1 MG PO ADMINISTERED. WILL CONTINUE TO MONITOR.
[2021-02-28] MEDS: ENSURE ENLIVE 237 ML LIQUID (VANILLA) PO SCH ×3 (07:51→17:22)
[2021-02-28 08:00] VITALS: BP 139/72
[2021-02-28] MEDS: AMLODIPINE BESYLATE 5 MG TABLET PO SCH (08:17)
[2021-02-28] MEDS: risperiDONE 1 MG TABLET PO SCH ×3 (08:17→16:10)
[2021-02-28 16:00] VITALS: BP 145/78
--- NOTE | 2021-02-28 19:15 | NUR ---
RECEIVED PATIENT IN ACTIVITY ROOM, AWAKE. SITTING UP IN A HIPOLITO CHAIR. ON ROOM AIR. BREATHING EVEN AND UNLABORED. NO S/S OF ACUTE DISTRESS. NO C/O PAIN. PATIENT DENIES SUICIDAL IDEATION AT THIS TIME. ALL NEEDS ATTENDED. WILL CONTINUE TO MONITOR Q15 MINS WITH THE HELP OF STAFF TO MAINTAIN SAFETY.
[2021-02-28 20:04] VITALS: BP 166/79
[2021-02-28] MEDS: QUETIAPINE FUMARATE 100 MG TABLET PO SCH (21:16)
[2021-02-28] MEDS: TRAZODONE 50 MG TABLET PO SCH (21:16)
[2021-02-28] MEDS: diphenhydrAMINE HCL 50 MG CAPSULE PO SCH (21:16)
[2021-03-01 08:00] VITALS: BP 133/76
[2021-03-01] MEDS: ENSURE ENLIVE 237 ML LIQUID (VANILLA) PO SCH ×3 (09:00→17:17)
[2021-03-01] MEDS: risperiDONE 1 MG TABLET PO SCH ×3 (09:00→17:19)
--- NOTE | 2021-03-01 10:52 | NUR ---
am meds not given as pt. still asleep.
[2021-03-01] MEDS: AMLODIPINE BESYLATE 5 MG TABLET PO SCH (14:05)
[2021-03-01 16:50] VITALS: BP 141/74
--- NOTE | 2021-03-01 19:55 | NUR ---
RN NOTE RECEIVED PATIENT UP IN HIPOLITO-CHAIR. A/O X 1. NO COMPLAINTS OF PAIN AT THIS TIME. RESPIRATIONS EVEN AND UNLABORED. NO S/SX OF DISTRESS OR AGITATION NOTED. ALL NEEDS ATTENDED TO. ASPIRATION, FALL AND SAFETY PRECAUTIONS MAINTAINED. WILL CONTINUE TO MONITOR FOR SAFETY.
[2021-03-01 20:13] VITALS: BP 159/91
[2021-03-01] MEDS: TRAZODONE 50 MG TABLET PO SCH (21:27)
[2021-03-01] MEDS: QUETIAPINE FUMARATE 100 MG TABLET PO SCH (21:27)
[2021-03-01] MEDS: diphenhydrAMINE HCL 50 MG CAPSULE PO SCH (21:27)
[2021-03-02 08:00] VITALS: BP 135/68
[2021-03-02] MEDS: risperiDONE 1 MG TABLET PO SCH ×3 (08:06→17:36)
[2021-03-02] MEDS: AMLODIPINE BESYLATE 5 MG TABLET PO SCH (08:06)
[2021-03-02] MEDS: ENSURE ENLIVE 237 ML LIQUID (VANILLA) PO SCH ×3 (08:33→17:36)
[2021-03-02 16:00] VITALS: BP 131/68
--- NOTE | 2021-03-02 18:49 | NUR ---
RN CLOSING NOTE PATIENT SLEPT MOST OF THE DAY. UP IN GERICHAIR IN COMMON ROOM ONCE HE WOKE UP. COMPLIANT WITH MEDICATION. NO S/S OF PAIN OR DISTRESS. WILL GIVE REPORT TO PM RN FOR HYUN.
[2021-03-02 20:00] VITALS: BP 155/76
[2021-03-02] MEDS: QUETIAPINE FUMARATE 100 MG TABLET PO SCH (21:04)
[2021-03-02] MEDS: diphenhydrAMINE HCL 50 MG CAPSULE PO SCH (21:04)
[2021-03-02] MEDS: TRAZODONE 50 MG TABLET PO SCH (21:11)
[2021-03-03 08:00] VITALS: BP 124/70
[2021-03-03] MEDS: risperiDONE 1 MG TABLET PO SCH ×3 (08:36→16:13)
[2021-03-03] MEDS: AMLODIPINE BESYLATE 5 MG TABLET PO SCH (08:37)
[2021-03-03] MEDS: ENSURE ENLIVE 237 ML LIQUID (VANILLA) PO SCH ×3 (08:39→17:20)
--- NOTE | 2021-03-03 10:35 | NUR ---
Family Contact: YADY contacted the pts , Bronwyn ([phone]), and provided her with an update regarding the pts condition. YADY informed her that the pts medications were adjusted again and the pt will be discharged sometime this week. YADY stated that she sent a referral to [facility].
--- NOTE | 2021-03-03 11:15 | NUR ---
gps submarine advisory team watch officer: psych f/u seen by dr. smith at this time.
--- NOTE | 2021-03-03 11:36 | NUR ---
SNF Referral: YADY faxed a referral to [facility] with attn to Maritza to the fax number: [phone].
--- NOTE | 2021-03-03 11:48 | NUR ---
gps promotions executive producer: notes ate 100% for lunch.
[2021-03-03 16:00] VITALS: BP 135/82
[2021-03-03] MEDS: LORAZEPAM 1 MG TABLET PO PRN (16:13)
--- NOTE | 2021-03-03 19:30 | NUR ---
RN NOTES PATIENT STILL IN THE HIPOLITO CHAIR, A/ O X 1. NOT IN ANY APPARENT DISTRESS.BREATHING EVEN AND UNLABORED. WILL MONITOR PATIENT CLOSELY.
[2021-03-03 20:00] VITALS: BP 166/89
[2021-03-03] MEDS: diphenhydrAMINE HCL 50 MG CAPSULE PO SCH (21:29)
[2021-03-03] MEDS: QUETIAPINE FUMARATE 100 MG TABLET PO SCH (21:29)
[2021-03-03] MEDS ORDERED: TRAZODONE 50 MG TABLET PO SCH (22:00)
[2021-03-04 08:00] VITALS: BP 140/63
[2021-03-04] MEDS: ENSURE ENLIVE 237 ML LIQUID (VANILLA) PO SCH ×3 (08:01→17:12)
[2021-03-04] MEDS: risperiDONE 1 MG TABLET PO SCH ×3 (08:02→17:12)
[2021-03-04] MEDS: AMLODIPINE BESYLATE 5 MG TABLET PO SCH (08:02)
[2021-03-04 20:00] VITALS: BP 138/79
[2021-03-04] MEDS: DIVALPROEX SODIUM 125 MG CAP.SPRINK PO SCH (20:59)
[2021-03-04] MEDS: diphenhydrAMINE HCL 50 MG CAPSULE PO SCH (21:01)
[2021-03-04] MEDS: MIRTAZAPINE 15 MG TABLET PO SCH (21:23)
[2021-03-04] MEDS: ACETAMINOPHEN 325 MG TABLET PO PRN (21:34)
[2021-03-04] MEDS: TEMAZEPAM 7.5 MG CAPSULE PO PRN (22:12)
--- NOTE | 2021-03-04 22:14 | NUR ---
GPS RN NOTES: RESTORIL 7.5MG/1CAP GIVEN PO PRN FOR INSOMNIA AT 2211. WILL CONTINUE TO MONITOR.
[2021-03-04] MEDS: LORAZEPAM 1 MG TABLET PO PRN (22:31)
--- NOTE | 2021-03-04 22:33 | NUR ---
GPS RN NOTES: PATIENT IS RESTLESS AND ANXIOUS, ATIVAN 1MG/1TAB GIVEN PO PRN AT 2231. WILL CONTINUE TO MONITOR.
--- NOTE | 2021-03-05 06:41 | NUR ---
GPS RN CLOSING NOTES: PATIENT IS CURRENTLY LAYING ON BED SLEEPING COMFORTABLY. PATIENT SLEPT 5HRS THIS SHIFT. NO S/S OF DISTRESS. RESPIRATION EVEN AND UNLABORED WITH EQUAL RISE AND FALL OF THE CHEST, ON ROOM AIR. BED IN LOWEST POSITION AND LOCKED WITH SIDE RAILS UP X2. CALL ROMERO WITHIN REACH. ALL PATIENT CARE NEEDS HAVE BEEN MET ANTICIPATED. WILL CONTINUE TO MONITOR FOR SAFETY, MOOD AND BEHAVIOR AND ENDORSE TO AM SHIFT.
[2021-03-05 08:00] VITALS: BP 116/69
[2021-03-05] MEDS: AMLODIPINE BESYLATE 5 MG TABLET PO SCH (08:28)
[2021-03-05] MEDS: ENSURE ENLIVE 237 ML LIQUID (VANILLA) PO SCH ×3 (08:29→16:46)
[2021-03-05] MEDS: DIVALPROEX SODIUM 125 MG CAP.SPRINK PO SCH ×2 (08:29→20:25)
[2021-03-05] MEDS: risperiDONE 1 MG TABLET PO SCH ×3 (08:29→16:46)
--- NOTE | 2021-03-05 09:12 | NUR ---
SNF Contact: Cate ([phone]) from [facility] contacted the SW and stated that the pt was not accepted to their facility.
--- NOTE | 2021-03-05 09:15 | NUR ---
SNF Referral: YADY faxed a referral to [facility] with attn to Lucinda to the fax number: [phone].
--- NOTE | 2021-03-05 09:15 | NUR ---
SNF Referral: YADY faxed a referral to [facility] with attn to FLORI and Jose to the fax number: [phone].
--- NOTE | 2021-03-05 09:16 | NUR ---
Family Contact: SW contacted the pts , Bronwyn ([phone]), and informed her that the pt was not accepted at [facility] and that the SW is going to send a referral to two other facilities. YADY provided the name and the addresses for these facilities and stated that she would follow up with the pts once she has any information.
--- NOTE | 2021-03-05 09:43 | NUR ---
SNF Contact: FLORI ([phone]) from [facility] contacted the SW and stated that the pt was accepted to their facility.
[2021-03-05 10:03] LABS: BASOPHILS % (AUTO) 0.2 % (0.0-2.0); EOSINOPHILS % (AUTO) 3.6 % (0.0-6.0); HEMATOCRIT 39 % (39-51); HEMOGLOBIN 12.8 g/dL (13.5-17.5); LYMPHOCYTES # (AUTO) 1.5 /CMM (0.8-4.8); MEAN CORPUSCULAR HGB CONC 33 g/dl (31.0-36.0); MEAN CORPUSCULAR VOLUME 96 fL (80-96); MONOCYTES # (AUTO) 0.5 /CMM (0.1-1.30); MONOCYTES % (AUTO) 8.4 % (2.0-12.0); NEUTROPHILS # (AUTO) 3.3 /CMM (1.8-8.9); NEUTROPHILS % (AUTO) 59.8 % (43.0-81.0); PLATELET COUNT (AUTO) 337 /CMM (150-450); RED BLOOD CELL COUNT(AUTO) 4.02 MIL/uL (4.5-6.0); WHITE BLOOD COUNT (AUTO) 5.5 K/uL (4.3-11.0)
--- NOTE | 2021-03-05 11:04 | NUR ---
SNF Contact: Rebekah ([phone]), coordinator of library services from [facility], contacted the SW and stated that the pt was accepted to their facility.
[2021-03-05 11:09] LABS: CALCIUM, SERUM 9.1 mg/dL (8.5-10.1); CREATININE 0.6 mg/dL (0.6-1.3); PHOSPHORUS 3.3 mg/dL (2.5-4.9); POTASSIUM 3.7 mmol/L (3.5-5.1)
[2021-03-05 16:00] VITALS: BP 135/65
[2021-03-05] MEDS: LORAZEPAM 1 MG TABLET PO PRN (19:34)
--- NOTE | 2021-03-05 19:36 | NUR ---
RN NOTE: ANXIETY PATIENT IS VERY ANXIOUS, RESTLESS, AGGRESSIVE, AGITATED, TRYING TO STRIKE AT STAFF, BANGING ON HIPOLITO CHAIR TRAY, LOUD, YELLING, PRN ATIVAN 1 MG GIVEN. WILL CONTINUE TO MONITOR.
[2021-03-05 20:20] VITALS: BP 100/51
[2021-03-05] MEDS: diphenhydrAMINE HCL 50 MG CAPSULE PO SCH (21:25)
[2021-03-05] MEDS: MIRTAZAPINE 15 MG TABLET PO SCH (21:25)
[2021-03-05] MEDS: TEMAZEPAM 7.5 MG CAPSULE PO PRN (22:27)
--- NOTE | 2021-03-05 22:28 | NUR ---
RN NOTES: INSOMNIA PT.UNABLE TO SLEEP, PRN RESTORIL 7.5 MG PO ADMINISTERED. WILL CONTINUE TO MONITOR.
[2021-03-06 08:00] VITALS: BP 158/73
[2021-03-06] MEDS: AMLODIPINE BESYLATE 5 MG TABLET PO SCH (08:52)
[2021-03-06] MEDS: DIVALPROEX SODIUM 125 MG CAP.SPRINK PO SCH ×2 (08:52→21:51)
[2021-03-06] MEDS: risperiDONE 1 MG TABLET PO SCH ×3 (08:53→16:54)
[2021-03-06] MEDS: ENSURE ENLIVE 237 ML LIQUID (VANILLA) PO SCH ×3 (08:53→16:54)
--- NOTE | 2021-03-06 09:00 | NUR ---
RN NOTE- PT CONFUSED DISORGANIZED QUIET THIS MORNING, SLEEPING OFF AND ON .
--- NOTE | 2021-03-06 13:23 | NUR ---
Family Contact: YADY contacted the pts , Bronwyn ([phone]), and informed her that the pt is going to be discharged tomorrow. She stated that she wants the pt to be discharged back to [facility] and YADY stated that was acceptable.
--- NOTE | 2021-03-06 13:27 | NUR ---
SNF Contact: YADY contacted Bronwyn ([phone]) from [facility] and informed her that the pt will return to their facility.
[2021-03-06 16:00] VITALS: BP 100/55
--- NOTE | 2021-03-06 19:18 | NUR ---
RN NOTES: RECEIVED PATIENT IN THE HIPOLITO-CHAIR,AWAKE, QUIET. NO S/S OF DISTRESS NOTED.
[2021-03-06 20:00] VITALS: BP 144/68
[2021-03-06] MEDS: diphenhydrAMINE HCL 50 MG CAPSULE PO SCH (21:51)
[2021-03-06] MEDS: MIRTAZAPINE 15 MG TABLET PO SCH (21:51)
[2021-03-06] MEDS: TEMAZEPAM 7.5 MG CAPSULE PO PRN (23:49)
[2021-03-07 08:00] VITALS: BP 119/64
[2021-03-07 08:34] VITALS: BP 119/64
[2021-03-07] MEDS: ENSURE ENLIVE 237 ML LIQUID (VANILLA) PO SCH ×2 (08:34→12:15)
[2021-03-07] MEDS: AMLODIPINE BESYLATE 5 MG TABLET PO SCH (08:34)
[2021-03-07] MEDS: DIVALPROEX SODIUM 125 MG CAP.SPRINK PO SCH (08:34)
[2021-03-07] MEDS: risperiDONE 1 MG TABLET PO SCH ×2 (08:35→12:15)
--- NOTE | 2021-03-07 09:00 | NUR ---
RN NOTE- PT ASLEEP THOUGH AWAKENED EASILY FOR BREAKFAST AND RX. MED COMPLIANT, CONFUSED DISORGANIZED THOUGHTS GARBLED SPEECH NOT COMBATIVE OR AGGRESSIVE. FOR DC TODAY
--- NOTE | 2021-03-07 11:43 | NUR ---
Discharge Note: Pt will be discharged to [facility] ([facility]) located at [address] [place] [address]; ([phone]). Pt will be transported via [facility] at 1300. Pts , Bronwyn ([phone]), was made aware. Upon discharge, the pt appears to be in a dysphoric mood and presents with a distressed affect. Pt presents as oriented x3 (time, place, and self). Pt denies both suicidal and homicidal ideation as well as auditory and visual hallucinations. Pt will continue to be under the care of his psychiatrist, Dr. Ashley, located at [address] [facility] [address], [place] [address]; and rivet machine operator, rivet machine operator, Dr. Smith, [place] [address] [place] [address]; . The choice of vendor form and multidisciplinary exit care form were done, printed, signed, and given to the patient.
--- NOTE | 2021-03-07 14:15 | NUR ---
MEAT INSPECTOR NOTE- PT DC TO [facility] AT THIS TIME VIA [facility]. ALERT ORIENTED TO PERSON . CONFUSED DISORGANIZED. MED COMPLIANT PO INTAKE GOOD. SKIN INTACT NEEDS ATTENDED. REPORT CALLED TO ANGELIQUE العراقي AT FACILITY THIS MORNING. VACC REFUSED, ID WRISTBAND REMOVED , VALUABLES RETURNED. ESCORTED OFF UNIT BY AMBULANCE STAFF.
== END 2021-03-07 14:15 | DRG 885 ==
LOC: ER 02:05 → GPS 07:46
PROVIDERS: ADMIT Psychiatry & Neurology Psychosomatic Medicine; ATTEND Internal Medicine
DX: F29 Unspecified psychosis not due to a substance or known physiological condition (principal); F02.81 Dementia in other diseases classified elsewhere, unspecified severity, with behavioral disturbance; F32.9 Major depressive disorder, single episode, unspecified; I10 Essential (primary) hypertension; G30.9 Alzheimer's disease, unspecified; E78.5 Hyperlipidemia, unspecified; F41.9 Anxiety disorder, unspecified; D63.8 Anemia in other chronic diseases classified elsewhere; Z73.6 Limitation of activities due to disability; M62.81 Muscle weakness (generalized); Z20.822 Contact with and (suspected) exposure to COVID-19; F25.0 Schizoaffective disorder, bipolar type; R73.03 Prediabetes
CPT/HCPCS: 36415; 80048-TC; 80053-TC; 80061-TC; 80076-TC; 81001; 82962-TC; 83735-TC; 84100-TC; 85025-TC; 87081-TC; 90715; C9803; G0480; J3490; Q0163

== ENCOUNTER 2021-06-24 15:29 | Emergency (ER) | payer MEDICARE, BC ==
[~2021-06-24] VITALS: Ht 182.9 cm; Wt 68.9 kg
[~2021-06-24 15:29] MED LIST: AMLO5TAB4 PO; DIPH50CA37 PO; QUET100T PO; QUET50TA PO
--- NOTE | 2021-06-24 15:51 | NUR ---
[id number], FOR LACERATION ON RIGHT EYEBROW S/P PATIENT PULLED ON THE IV POLE AND FELL ON HIS HEAD. THE PATIENT IS ALERT X1. VERBALLY RESPONSIVE. UNABLE TO TO RATE PAIN. THE ATTACHED TO THE MONITOR. WILL CONTINUE TO MONITOR THE PATIENT.
[2021-06-24] MEDS ORDERED: LIDOCAINE 1%-EPI 1:100,000 20 ML VIAL TP ONE (16:30)
[2021-06-24] MEDS ORDERED: TDAP [DIPH/PERTUSSIS/TET] 0.5 ML VIAL IM ONE ×2 (16:30→16:47)
--- NOTE | 2021-06-24 16:32 | NUR ---
CORNELIO AUSTINIGRIKIMAHAD AT THE BEDSIDE
--- NOTE | 2021-06-24 16:48 | NUR ---
THE PATIENT`S JEANNE MERRITT AGREED FOR THE PATIENT TO GET TDAP
[2021-06-24] MEDS ORDERED: GELATIN SPONGE,ABSORBABLE 1 SPONGE SPONGE TP ONE (16:49)
--- NOTE | 2021-06-24 17:15 | NUR ---
THE PATIENT IS TAKEN TO CT
--- NOTE | 2021-06-24 17:29 | NUR ---
THE PATIENT IS BACK FROM CT
--- NOTE | 2021-06-24 18:08 | NUR ---
RAZA FROM [facility] [phone] GAVE ETA OF 1900 FOR TRANSPORT OF PT TO [facility].
--- NOTE | 2021-06-24 18:16 | NUR ---
REPORT GIVEN TO NURSE HANDLEY. EXPECTED MEDICAL HOUSEKEEPER IS AT 1900.
--- NOTE | 2021-06-24 19:02 | NUR ---
TRANSPORTED BACK TO SNF IN STABLE CONDITION.
[2021-06-24 19:04] VITALS: BP 127/80
== END 2021-06-24 19:04 ==
LOC: ER 15:33
DX: S01.111A Laceration without foreign body of right eyelid and periocular area, initial encounter (principal); F32.9 Major depressive disorder, single episode, unspecified; F41.9 Anxiety disorder, unspecified; E78.5 Hyperlipidemia, unspecified; G30.9 Alzheimer's disease, unspecified; F02.80 Dementia in other diseases classified elsewhere, unspecified severity, without behavioral disturbance, psychotic disturbance, mood disturbance, and anxiety; F25.9 Schizoaffective disorder, unspecified; I12.0 Hypertensive chronic kidney disease with stage 5 chronic kidney disease or end stage renal disease; E11.22 Type 2 diabetes mellitus with diabetic chronic kidney disease; N18.6 End stage renal disease; Z79.899 Other long term (current) drug therapy; W18.09XA Striking against other object with subsequent fall, initial encounter; Y93.89 Activity, other specified; Y92.89 Other specified places as the place of occurrence of the external cause; Y99.8 Other external cause status
CPT/HCPCS: 70450-TC; 90715